=== PATIENT | female | born 1995 | race Caucasian/White ===

== ENCOUNTER 2018-05-10 12:34 | Emergency (ER) | payer MEDICAID, OTHER ==
[2018-05-10] MEDS: IBUPROFEN 600 MG TAB PO (13:10)
[2018-05-10] MEDS: DEXAMETHASONE 10 MG/ML 1 ML INJ IM (13:24)
[2018-05-10] MEDS: AMOXICILLIN 500 MG CAP PO (13:24)
== END 2018-05-10 14:14 | disposition home or self-care (01) ==
LOC: FTE 12:34
DX: J02.9 Acute pharyngitis, unspecified (principal)
CPT/HCPCS: 96372; 99284-25